=== PATIENT | male | born 1935 | race Caucasian/White ===

== ENCOUNTER → 2016-07-01 | Outpatient (CLI) | payer MEDICARE ==
[~2016-07-01] MED LIST: AMLO10 PO; ASPI81TA82 PO; ATOR10 PO; GLIP5 PO; METF-324 PO; TOPR50TA PO
[2016-07-01 09:33] LABS: ALKALINE PHOSPHATASE 51 U/L (45-117); ALT (GPT) 23 U/L (12-78); ANION GAP 8 MEQ/L (5-15); AST (GOT) 16 U/L (15-37); BICARBONATE 29.4 MEQ/L (21.0-32.0); BLOOD UREA NITROGEN 16 MG/DL (7-18); CHLORIDE 99 MEQ/L (98-107); GLOMERULAR FILTRATION RATE 54 ML/MIN (>89); GLUCOSE,FASTING 223 MG/DL (74-99); HDL CHOLESTEROL 44.5 MG/DL (40.0-60.0); LDL CHOLESTEROL 70 MG/DL (0-99); POTASSIUM 4.5 MEQ/L (3.5-5.1); SODIUM (NA) 136 MEQ/L (136-145); TOTAL BILIRUBIN ADULT 0.6 MG/DL (0.2-1.0)
[2016-07-01 15:46] LABS: HEMOGLOBIN A1a 0.9 %; HEMOGLOBIN A1b 2.6 %; HEMOGLOBIN Ao 80.9 %; HEMOGLOBIN LA1C 2.9 %; HEMOGLOBIN P3 4.5 %
== END ==
LOC: CLAB 08:33
PROVIDERS: ATTEND Family Medicine
DX: E11.9 Type 2 diabetes mellitus without complications (principal); I10 Essential (primary) hypertension
CPT/HCPCS: 36415; 80053; 80061; 82043; 83036

== ENCOUNTER → 2017-01-07 | Outpatient (CLI) | payer MEDICARE ==
[2017-01-07 08:58] LABS: ANION GAP 8 MEQ/L (5-15); AST (GOT) 19 U/L (15-37); BICARBONATE 27.1 MEQ/L (21.0-32.0); BLOOD UREA NITROGEN 21 MG/DL (7-18); CHLORIDE 101 MEQ/L (98-107); GLOMERULAR FILTRATION RATE 64 ML/MIN (>89); GLUCOSE,FASTING 217 MG/DL (74-99); POTASSIUM 4.2 MEQ/L (3.5-5.1); SODIUM (NA) 136 MEQ/L (136-145)
[2017-01-07 09:02] LABS: ALKALINE PHOSPHATASE 51 U/L (45-117); ALT (GPT) 22 U/L (12-78); HDL CHOLESTEROL 39.7 MG/DL (40.0-60.0); LDL CHOLESTEROL 61 MG/DL (0-99); TOTAL BILIRUBIN ADULT 0.5 MG/DL (0.2-1.0)
[2017-01-07 15:58] LABS: HEMOGLOBIN A1a 1.2 %; HEMOGLOBIN A1b 2.6 %; HEMOGLOBIN Ao 80.8 %; HEMOGLOBIN LA1C 2.8 %; HEMOGLOBIN P3 4.5 %
== END ==
LOC: CLAB 07:55
PROVIDERS: ATTEND Family Medicine
DX: E11.9 Type 2 diabetes mellitus without complications (principal); I10 Essential (primary) hypertension; Z12.5 Encounter for screening for malignant neoplasm of prostate
CPT/HCPCS: 36415; 80053; 80061; 83036; G0103

== ENCOUNTER → 2017-07-16 | Outpatient (CLI) | payer MEDICARE ==
[2017-07-16 10:07] LABS: ALBUMIN 4.1 GM/DL (3.4-5.0); AST (GOT) 18 U/L (15-37); BICARBONATE 27.9 MEQ/L (21.0-32.0); BLOOD UREA NITROGEN 21 MG/DL (7-18); CALCIUM 9.3 MG/DL (8.5-10.1); CHLORIDE 100 MEQ/L (98-107); CREATININE 1.09 MG/DL (0.60-1.30); GLOMERULAR FILTRATION RATE 65 ML/MIN (>89); GLUCOSE,FASTING 180 MG/DL (74-99); SODIUM (NA) 137 MEQ/L (136-145)
[2017-07-16 10:08] LABS: ALT (GPT) 23 U/L (12-78); CHOLESTEROL 142 MG/DL (120-200)
[2017-07-16 10:10] LABS: ALKALINE PHOSPHATASE 53 U/L (45-117); CHOLESTEROL/ HDL RATIO 3.31 RATIO; HDL CHOLESTEROL 42.8 MG/DL (40.0-60.0); LDL CHOLESTEROL 75 MG/DL (0-99); TOTAL BILIRUBIN ADULT 0.5 MG/DL (0.2-1.0); TRIGLYCERIDES 120 MG/DL (42-150)
[2017-07-16 16:30] LABS: HEMOGLOBIN A1C 7.7 % (4.3-6.0)
== END ==
LOC: CLAB 08:44
PROVIDERS: ATTEND Family Medicine
DX: I10 Essential (primary) hypertension (principal); E11.9 Type 2 diabetes mellitus without complications
CPT/HCPCS: 36415; 80053; 80061; 83036